=== PATIENT | male | born 1955 | race African-American/Black ===

== ENCOUNTER 2025-08-14 10:47 | Emergency (ER) | payer MEDICARE, MEDICAID ==
[~2025-08-14] VITALS: Ht 182.9 cm; Wt 113.0 kg
[2025-08-14 10:53] VITALS: O2SAT 100
[2025-08-14] MEDS: LIDOCAINE 5% PATCH TOP STA (11:57)
[2025-08-14] MEDS: CYCLOBENZAPRINE 10MG TABLET PO ONE (11:58)
[2025-08-14] MEDS: KETOROLAC 15MG/ML VIAL IM ONE (11:58)
[2025-08-14 13:37] VITALS: BP 130/77; PULSE 91; RESP 15; TEMP 36.8; O2SAT 100
== END 2025-08-14 13:41 | disposition home or self-care (01) ==
LOC: ER 10:47
DX: S32.010A Wedge compression fracture of first lumbar vertebra, initial encounter for closed fracture (principal); M47.812 Spondylosis without myelopathy or radiculopathy, cervical region; M47.814 Spondylosis without myelopathy or radiculopathy, thoracic region; M47.816 Spondylosis without myelopathy or radiculopathy, lumbar region; W19.XXXA Unspecified fall, initial encounter; Y93.89 Activity, other specified; Y92.89 Other specified places as the place of occurrence of the external cause; Y99.8 Other external cause status
CPT/HCPCS: 99284; 71101; 72040; 72070; 72100; 96372; J1885